=== PATIENT | male | born 1995 | race Caucasian/White ===

== ENCOUNTER 2022-12-20 20:30 | Emergency (ER) | payer SELFPAY ==
--- NOTE | ~2022-12-20 | XR_ITS ---
EXAM: XR wrist LT min 3V DATE: 12/20/2022 20:55 HISTORY: Pain to L wrist s/p fall off [employer] ladder . COMPARISON: None available. FINDINGS: Normal mineralization. No fracture or dislocation. No lytic or blastic lesion. Joint space s are maintained. No erosion or periosteal change. Soft tissues within normal limits. IMPRESSION: No acute osseous finding in the left wrist. Reviewed, dictated and finalized at location K.
--- NOTE | ~2022-12-20 | XR_ITS ---
EXAM: XR knee RT min 4V, XR knee LT min 4V DATE: 12/20/2022 20:55 HISTORY: Bilateral knee pain s/p fall off 12ft ladder . COMPARISON: None available. FINDINGS: Normal mineralization. No fracture or dislocation. No lytic or blastic lesion. Joint space s are maintained. No erosion or periosteal change. Bilateral anterior soft tissue swelling. Large lef t knee joint fluid collection. No significant right knee effusion. IMPRESSION: No acute osseous finding in the right or left knees. Large left knee joint effusion. Bila teral anterior soft tissue swelling. Reviewed, dictated and finalized at location K. IMPRESSION: No acute osseous finding in the right or left knees. Large left kne e joint effusion. Bilateral anterior soft tissue swelling.
[2022-12-20 20:33] VITALS: BP 137/77; PULSE 87; RESP 20; TEMP 37.1; O2SAT 100
[2022-12-20 21:09] VITALS: BP 162/85; PULSE 85; RESP 18; TEMP 36.6; O2SAT 100
--- NOTE | 2022-12-20 21:18 | ED.FALL ---
HPI - Fall General Chief Complaint: Fall Stated Complaint: 12 foot fall Time Seen by Provider: 12/20/22 21:04 History of Present Illness HPI Narrative: This is a 27-year-old male who denies significant past medical history, but was presenting to the emergency department complaining of bilateral knee pain and left wrist pain after a fall approximately 12 feet. 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 He landed on the knees and left wrist. He denies head injury or loss of consciousness. He complains of bilateral dull knee pain left greater than right rated approximately at 7/10. The left wrist pain is dull and rated at 5/10. He states he was able to ambulate after the fall, though his progressive pain has limited him. Related Data Allergies Allergy/AdvReac Type Severity Reaction Status Date / Time No Known Allergies Allergy Verified 12/20/22 20:36 Review of Systems Review of Systems: CONSTITUTIONAL: Denies fever, chills, or sweats. EYES: Denies visual changes, redness, or discharge. CARDIOVASCULAR: Denies chest pain, palpitations, or edema. RESPIRATORY: Denies cough or dyspnea. GASTROINTESTINAL: Denies abdominal pain, nausea, vomiting, or diarrhea. GENITOURINARY: Denies dysuria or hematuria. SKIN: Denies rash or itching. MUSCULOSKELETAL: Bilateral knee and left wrist pain denies myalgia. NEUROLOGIC: Denies headache, numbness, dizziness, or weakness. PSYCHIATRIC: Denies anxiety or depression. [facility] Social History Social History (Updated 12/20/22 @ 21:30 by Ibrahima Butler MD) Smoking status: Current every day smoker Alcohol intake: current Drinks per week: 1 Substance use: never Exam Narrative: GENERAL: Well-developed, well-nourished, and in no acute distress. HEAD: Normocephalic, atraumatic. EYES: PERRLA and EOMI. ENT: Nares clear, no rhinorrhea or epistaxis. Mucous membranes moist. Oropharynx without tonsillar hypertrophy exudate or other lesions. Bilateral TMs pearly kim nonbulging. No hemotympanum NECK: Supple. No adenopathy or masses. No midline tenderness to palpation, no step-off or crepitus. CHEST: Clear to auscultation. No respiratory distress. No wheezes rales or rhonchi HEART: Regular rate and rhythm. No murmur heard. Normal peripheral pulses. ABDOMEN: Soft, nontender, nondistended, normal active bowel sounds. BACK: No midline tenderness to palpation, no step-off or crepitus. EXTREMITIES: Abrasions noted over the bilateral knees, the left greater than the right. Superficial abrasions noted over the lateral aspect of the left elbow. Normal range of motion of all extremities. No edema. SKIN: Abrasions as noted above. Skin otherwise warm, dry, no rash. NEURO: No focal deficits. Alert and oriented x3. Strength 5/5 in all extremities, sensation intact bilaterally PSYCH: Normal mood and affect. Course Course Emergency Course: 21:20 - X-rays of the bilateral knees and left wrist negative for fracture. The patient is not sure of his last tetanus. We will update that today. Will discharge with recommendation for RICE therapy and NSAIDs for pain. Discussed return and emergency precautions including signs/symptoms of neurovascular compromise and wound infection. The patient voiced understanding and is comfortable with the plan. All questions answered to his satisfaction. Vital Signs Vital signs: Vital Signs Temperature 98.7 F 12/20/22 20:33 Pulse Rate 87 12/20/22 20:33 Respiratory Rate 20 12/20/22 20:33 Blood Pressure 137/77 12/20/22 20:33 Pulse Oximetry 100 12/20/22 20:33 Oxygen Delivery Room Air 12/20/22 20:33 Temperature 97.8 F 12/20/22 21:09 Pulse Rate 85 12/20/22 21:09 Respiratory Rate 18 12/20/22 21:09 Blood Pressure 162/85 H 12/20/22 21:09 Pulse Oximetry 100 12/20/22 21:09 Oxygen Delivery Room Air 12/20/22 20:33 MDM - Fall MDM Narrative Medical decision making narrative: Plan: Imaging
--- NOTE | 2022-12-20 21:39 | PC.NURSE ---
Nursing staff went to go give patient medications and discharge paperwork. Patient not in room and belongings gone.
== END 2022-12-21 00:27 | disposition left against medical advice (07) ==
LOC: ANHED 21:46
PROVIDERS: Emergency Provider Preventive Medicine Aerospace Medicine
DX: S80.02XA Contusion of left knee, initial encounter (principal); S80.01XA Contusion of right knee, initial encounter; S80.212A Abrasion, left knee, initial encounter; F17.200 Nicotine dependence, unspecified, uncomplicated; W12.XXXA Fall on and from scaffolding, initial encounter
CPT/HCPCS: 73110; 73564; 99284